=== PATIENT | male | born 1965 | race Caucasian/White ===

== ENCOUNTER 2019-02-24 12:58 | Emergency (ER) | payer SELFPAY ==
[~2019-02-24] VITALS: Wt 92.1 kg
[~2019-02-24 12:58] MED LIST: AMOXICILLIN500 MG PO; ANAPROX DS550 MG PO; BACTRIM DS 8001 TA1 PO; CLEOCIN150 MG PO; CRESTOR20 MG PO; LOPID600 MG PO; LOPRESSOR25 MG PO; MOTRIN800 MG PO; PAXIL40 MG PO; TRIMOX500 MG PO; VICODIN 5/500 505 MG PO; VICODIN 500 MG-1 TAB PO
[2019-02-25] MEDS ORDERED: CEPHALEXIN500 M1 PO (09:51)
== END 2019-02-24 16:09 | disposition home or self-care (01) ==
LOC: ED 12:58
DX: S51.011A Laceration without foreign body of right elbow, initial encounter (principal); M54.9 Dorsalgia, unspecified; Z79.2 Long term (current) use of antibiotics; Z79.899 Other long term (current) drug therapy; W13.2XXA Fall from, out of or through roof, initial encounter; Y93.89 Activity, other specified; Y92.89 Other specified places as the place of occurrence of the external cause; Y99.8 Other external cause status

== ENCOUNTER 2019-03-09 11:17 | Emergency (ER) | payer OTHER ==
[~2019-03-09] VITALS: Ht 177.8 cm; Wt 90.7 kg
[~2019-03-09 11:17] MED LIST changes: +CEPHALEXIN500 M1 PO
== END 2019-03-09 13:06 | disposition home or self-care (01) ==
LOC: ED 11:17
DX: S51.011D Laceration without foreign body of right elbow, subsequent encounter (principal); M25.571 Pain in right ankle and joints of right foot; F17.200 Nicotine dependence, unspecified, uncomplicated; Z48.02 Encounter for removal of sutures; Z79.899 Other long term (current) drug therapy; W13.2XXD Fall from, out of or through roof, subsequent encounter

== ENCOUNTER 2019-03-13 19:48 | Emergency (ER) | payer MEDICAID ==
[~2019-03-13] VITALS: Ht 177.8 cm; Wt 90.7 kg
[2019-03-13] MEDS ORDERED: CEPHALEXIN500 M1 PO (20:16)
== END 2019-03-13 20:35 | disposition home or self-care (01) ==
LOC: ED 19:48
DX: Z79.899 Other long term (current) drug therapy (principal); S51.011D Laceration without foreign body of right elbow, subsequent encounter; W13.2XXD Fall from, out of or through roof, subsequent encounter